=== PATIENT | female | born 1940 | race Caucasian/White ===

== ENCOUNTER 2017-01-17 05:21 | Observation (INO) | payer MEDICARE, OTHER ==
[2017-01-10 09:03] VITALS: BP 140/84
[~2017-01-17] VITALS: Ht 149.9 cm; Wt 83.1 kg
[~2017-01-17 05:21] MED LIST: ACET1TAB64 PO; AMLO10TA2 PO; ASCO500C2 PO; CHOL2000 PO; CYAN500T2 PO; FOLI0.8T2 PO; GOLD325C2 PO; IBUP-1223 PO; LOSA1TAB17 PO; MAGN400C PO; OMEP20TA62 PO; PREVISION PO; Potassium PO; TRAZ50TA18 PO; TURM500C3 PO; [UNRECOGNIZED DRUG - OTHER] PO
[2017-01-17] MEDS ORDERED: LACTATED RINGERS 1,000 ML IV SCH (06:10)
[2017-01-17] MEDS ORDERED: LASIX PO (06:15)
[2017-01-17] MEDS ORDERED: LIDOCAINE 1%, 2ML SQ PRN (06:30)
[2017-01-17] MEDS ORDERED: BUPIVACAINE/PF 0.25% ONE (06:49)
[2017-01-17] MEDS ORDERED: NEOMY/POLYMYXIN B GU IRR. 1 ML IRRIG ONE (06:49)
[2017-01-17] MEDS ORDERED: EPINEPHRINE 1 MG/ML, 1ML ONE (06:49)
[2017-01-17] MEDS ORDERED: MIDAZOLAM 1 MG/ML, 2ML ONE ×2 (07:05)
[2017-01-17] MEDS ORDERED: FENTANYL PF 100 MCG/2ML ONE ×3 (07:05→09:30)
[2017-01-17] MEDS ORDERED: KETAMINE 10 MG/ML, 20ML ONE ×2 (07:26→07:27)
[2017-01-17] MEDS ORDERED: METOCLOPRAMIDE 5 MG/ML, 2ML ONE (07:27)
[2017-01-17] MEDS ORDERED: ONDANSETRON 2MG/ML, 2ML ONE (07:27)
[2017-01-17] MEDS ORDERED: ROCURONIUM 10 MG/ML ONE (07:27)
[2017-01-17] MEDS ORDERED: CEFOTETAN 1 GM ONE (07:27)
[2017-01-17] MEDS ORDERED: KETOROLAC 30 MG/1 ML ONE (07:27)
[2017-01-17] MEDS ORDERED: DEXAMETHASONE 4 MG/ML, 1ML ONE (07:27)
[2017-01-17] MEDS ORDERED: PROPOFOL 10 MG/ML, 20ML ONE (07:27)
[2017-01-17] MEDS ORDERED: MEPERIDINE/PF 25MG/0.5ML IVPush PRN (08:00)
[2017-01-17] MEDS ORDERED: PROMETHAZINE 25 MG/ML, 1ML IV PRN (08:00)
[2017-01-17] MEDS ORDERED: FENTANYL PF 100 MCG/2ML IV PRN (08:00)
[2017-01-17] MEDS ORDERED: LABETALOL 5MG/ML, 20ML IV PRN (08:00)
[2017-01-17] MEDS ORDERED: ONDANSETRON 2MG/ML, 2ML IVPush PRN (08:00)
[2017-01-17] MEDS ORDERED: hydrALAzine 20 MG/ML, 1ML IV PRN (08:00)
[2017-01-17] MEDS ORDERED: ACETAMINOPHEN 325 MG TABLET PO PRN ×2 (08:00→19:00)
[2017-01-17] MEDS ORDERED: OXYcodone 5 MG/5 ML ORAL.SOL UDC PO PRN (08:00)
[2017-01-17] MEDS ORDERED: HYDROmorphone 1 MG/ML, 1ML IV PRN (08:00)
[2017-01-17] MEDS ORDERED: HYDROmorphone 2 MG/ML, 1ML ONE (08:09)
[2017-01-17] MEDS ORDERED: ACETAMINOPHEN 650 MG/20.3 ML UDC ONE (09:30)
[2017-01-17] MEDS ORDERED: OXYcodone 5 MG/5 ML ORAL.SOL UDC ONE (09:31)
[2017-01-17] MEDS ORDERED: LABETALOL 5MG/ML, 20ML ONE (09:36)
[2017-01-17 18:15] VITALS: BP 123/70
[2017-01-17] MEDS ORDERED: HYDROcodone/APAP 5/325 TABLET PO PRN (19:00)
[2017-01-17] MEDS ORDERED: OXYcodone/APAP 5/325MG TABLET PO PRN (19:00)
[2017-01-17] MEDS ORDERED: ACETAMINOPHEN 650 MG SUPP PR PRN (19:00)
[2017-01-17] MEDS ORDERED: ONDANSETRON 2MG/ML, 2ML IV PRN (19:00)
[2017-01-17] MEDS ORDERED: HYDROmorphone 2 MG/ML, 1ML IV PRN (19:00)
[2017-01-17 20:12] VITALS: BP 113/60
[2017-01-17] MEDS: SODIUM CHLORIDE FLUSH 3ML SYRINGE IVF SCH (20:55)
[2017-01-17] MEDS: SIMETHICONE 80 MG CHEW TAB PO SCH (20:55)
[2017-01-17] MEDS: IBUPROFEN 600 MG TABLET PO SCH (20:55)
[2017-01-17] MEDS: DOCUSATE 100 MG CAPSULE PO SCH (20:56)
[2017-01-17] MEDS ORDERED: ZOLPIDEM 5MG TABLET PO PRN (21:00)
[2017-01-17] MEDS: APAP/CODEINE 300/30MG TABLET PO PRN (23:38)
[2017-01-17 23:59] VITALS: BP 134/84
[2017-01-18 04:01] VITALS: BP 131/78
[2017-01-18] MEDS: APAP/CODEINE 300/30MG TABLET PO PRN ×2 (04:39→13:43)
[2017-01-18] MEDS: IBUPROFEN 600 MG TABLET PO SCH ×2 (06:06→11:36)
[2017-01-18] MEDS ORDERED: OMEPRAZOLE 20 MG CAPSULE.DR PO SCH (07:30)
[2017-01-18] MEDS: DOCUSATE 100 MG CAPSULE PO SCH (07:37)
[2017-01-18] MEDS: SODIUM CHLORIDE FLUSH 3ML SYRINGE IVF SCH (07:39)
[2017-01-18] MEDS: SIMETHICONE 80 MG CHEW TAB PO SCH (07:39)
[2017-01-18 07:53] VITALS: BP 121/73
[2017-01-18] MEDS ORDERED: MAGNESIUM OXIDE 400 MG TABLET PO SCH (09:00)
[2017-01-18] MEDS ORDERED: CYANOCOBALAMIN 1,000 MCG TABLET PO SCH (09:00)
[2017-01-18] MEDS ORDERED: CHOLECALCIFEROL 1,000 UNIT TABLET PO SCH (09:00)
[2017-01-18] MEDS ORDERED: LOSARTAN 50MG TABLET PO SCH (09:00)
[2017-01-18] MEDS ORDERED: FOLIC ACID 1 MG TABLET PO SCH (09:00)
[2017-01-18] MEDS ORDERED: HYDROCHLOROTHIAZIDE 25 MG TABLET PO SCH (09:00)
[2017-01-18] MEDS ORDERED: POTASSIUM CHLORIDE 8 MEQ TABLET.ER PO SCH (09:00)
[2017-01-18] MEDS ORDERED: AMLODIPINE 5 MG TABLET PO SCH (09:00)
[2017-01-18 13:53] VITALS: BP 123/72
== END 2017-01-18 17:13 | disposition home or self-care (01) ==
LOC: OUT 05:21 → ORIP 16:47 → 4NOR 18:11 → DCLOUNGE 01-18 16:45
PROVIDERS: ADMIT Obstetrics & Gynecology Female Pelvic Medicine and Reconstructive Surgery; ATTEND Obstetrics & Gynecology Female Pelvic Medicine and Reconstructive Surgery
DX: N81.3 Complete uterovaginal prolapse (principal); I10 Essential (primary) hypertension; R10.2 Pelvic and perineal pain; N39.46 Mixed incontinence; Z85.3 Personal history of malignant neoplasm of breast
CPT/HCPCS: 57268; 57288; 58552; 88307; C1771; G0378; J0171; J1100; J1170; J1885; J2250; J2405; J2704; J2765; J3010; J3490; S0074

== ENCOUNTER 2017-09-01 09:05 | Day surgery (SDC) | payer MEDICARE, OTHER ==
[~2017-09-01] VITALS: Ht 142.2 cm; Wt 76.0 kg
[~2017-09-01 09:05] MED LIST changes: +LASIX PO; -LOSA1TAB17 PO; +LOSA1TAB22 PO; +OXYC5SOL8 PO
[2017-09-01 09:33] VITALS: BP 160/82
[2017-09-01] MEDS ORDERED: LACTATED RINGERS 1,000 ML IV SCH (09:40)
[2017-09-01 09:43] VITALS: BP 160/82
[2017-09-01 10:31] LABS: ALBUMIN 3.7 g/dL (3.4-5.0); ANION GAP 5 mmol/L (5-15); CALCIUM 9.2 mg/dL (8.5-10.1); CHLORIDE 104 mmol/L (98-107)
[2017-09-01 10:34] LABS: ALANINE AMINOTRANSFERASE 26 U/L (12-78); ALKALINE PHOSPHATASE 129 U/L (45-117); BILIRUBIN,TOTAL 0.6 mg/dL (0.2-1.0); CREATININE 0.48 mg/dL (0.55-1.02); TOTAL PROTEIN 7.3 g/dL (6.4-8.2)
[2017-09-01] MEDS ORDERED: MIDAZOLAM 1 MG/ML, 2ML ONE (11:40)
[2017-09-01] MEDS ORDERED: PROPOFOL 10 MG/ML, 20ML ONE (11:41)
[2017-09-01] MEDS ORDERED: FENTANYL PF 250 MCG/5ML ONE (11:41)
[2017-09-01] MEDS ORDERED: LIDOCAINE-MPF 2% ,5ML ONE (11:42)
[2017-09-01] MEDS ORDERED: KETOROLAC 30 MG/1 ML ONE (11:42)
[2017-09-01] MEDS ORDERED: PHENYLEPHRINE 10 MG/ML ONE (11:42)
[2017-09-01] MEDS ORDERED: ROCURONIUM 10 MG/ML,10ML ONE (11:42)
[2017-09-01] MEDS ORDERED: CEFOTETAN 1 GM ONE (11:42)
[2017-09-01] MEDS ORDERED: ONDANSETRON 2MG/ML, 2ML ONE (12:16)
[2017-09-01] MEDS ORDERED: DEXAMETHASONE 4 MG/ML, 1ML ONE ×2 (12:16)
[2017-09-01] MEDS ORDERED: BUPIVACAINE/PF 0.25% INFIL ONE (12:17)
[2017-09-01] MEDS ORDERED: EPINEPHRINE 1 MG/ML, 1ML INFIL ONE (12:20)
[2017-09-01] MEDS ORDERED: NEOSTIGMINE 1 MG/ML, 10ML ONE (12:25)
[2017-09-01] MEDS ORDERED: GLYCOPYRROLATE 0.2MG/1ML, 5ML ONE (12:25)
[2017-09-01] MEDS ORDERED: ACETAMINOPHEN 325 MG TABLET PO PRN (12:30)
[2017-09-01] MEDS ORDERED: OXYcodone 5 MG/5 ML ORAL.SOL UDC PO PRN (12:30)
[2017-09-01] MEDS ORDERED: LORazepam 2 MG/ML, 1ML IVPush PRN (12:30)
[2017-09-01] MEDS ORDERED: hydrALAzine 20 MG/ML, 1ML IV PRN (12:30)
[2017-09-01] MEDS ORDERED: PROMETHAZINE 25 MG/ML, 1ML IV PRN (12:30)
[2017-09-01] MEDS ORDERED: MEPERIDINE/PF 25MG/0.5ML IVPush PRN (12:30)
[2017-09-01] MEDS ORDERED: morphine SULFATE 10 MG/ML, 1ML IV PRN (12:30)
[2017-09-01] MEDS ORDERED: FENTANYL PF 100 MCG/2ML IV PRN (12:30)
[2017-09-01] MEDS ORDERED: LABETALOL 5MG/ML, 20ML IV PRN (12:30)
[2017-09-01] MEDS ORDERED: BUPIVACAINE/PF 0.25% ONE (12:41)
[2017-09-01] MEDS ORDERED: EPINEPHRINE 1 MG/ML, 1ML ONE (12:41)
[2017-09-01] MEDS ORDERED: OXYcodone 5 MG/5 ML ORAL.SOL UDC ONE (12:56)
[2017-09-01] MEDS ORDERED: ACETAMINOPHEN 650 MG/20.3 ML UDC ONE (12:56)
== END 2017-09-01 16:30 | disposition home or self-care (01) ==
LOC: OUT 09:05
PROVIDERS: ATTEND Surgery
DX: K43.2 Incisional hernia without obstruction or gangrene (principal); I10 Essential (primary) hypertension; E66.9 Obesity, unspecified; Z88.8 Allergy status to other drugs, medicaments and biological substances; Z90.710 Acquired absence of both cervix and uterus; Z90.49 Acquired absence of other specified parts of digestive tract; Z98.890 Other specified postprocedural states; Z90.11 Acquired absence of right breast and nipple
CPT/HCPCS: 36415; 49565; 49568; 80053; C1781; J0171; J1100; J1885; J2250; J2370; J2405; J2704; J2710; J3010; J3490; J7120; S0074

== ENCOUNTER 2018-02-08 10:55 | Observation (INO) | payer MEDICARE, OTHER ==
[~2018-02-08] VITALS: Ht 142.2 cm; Wt 81.3 kg
[~2018-02-08 10:55] MED LIST changes: +ALLERGY PO; -AMLO10TA2 PO; +AMLO10TA6 PO; +BUPIVACAINE/PF-EPI 0.5% 1:200K ONE; +IRON PO; +LOSA25TA6 PO; +NAPR220C2 PO; +TRAZ-136 PO; -TRAZ50TA18 PO
[2018-02-08] MEDS ORDERED: LACTATED RINGERS 1,000 ML IV SCH (11:10)
[2018-02-08] MEDS ORDERED: GABAPENTIN 300 MG CAPSULE PO ONE (11:30)
[2018-02-08] MEDS ORDERED: ACETAMINOPHEN 500 MG TABLET PO ONE (11:30)
[2018-02-08] MEDS ORDERED: OXYcodone IR 5MG TABLET PO ONE (12:00)
[2018-02-08] MEDS ORDERED: MEPERIDINE/PF 25MG/0.5ML IVPush PRN (13:30)
[2018-02-08] MEDS ORDERED: HYDROmorphone 1 MG/ML, 1ML IV PRN (13:30)
[2018-02-08] MEDS ORDERED: PROMETHAZINE 25 MG/ML, 1ML IV PRN (13:30)
[2018-02-08] MEDS ORDERED: LABETALOL 5MG/ML, 20ML IV PRN (13:30)
[2018-02-08] MEDS ORDERED: DIPHENHYDRAMINE 50 MG/ML, 1ML IVPush PRN (13:30)
[2018-02-08] MEDS ORDERED: PROCHLORPERAZINE 5 MG/ML, 2ML IV PRN (13:30)
[2018-02-08] MEDS ORDERED: OXYcodone 5 MG/5 ML ORAL.SOL UDC PO PRN (13:30)
[2018-02-08] MEDS ORDERED: hydrALAzine 20 MG/ML, 1ML IV PRN (13:30)
[2018-02-08] MEDS ORDERED: FENTANYL PF 250 MCG/5ML ONE (13:32)
[2018-02-08] MEDS ORDERED: EPHEDRINE 50 MG/ML, 1ML ONE (14:20)
[2018-02-08] MEDS ORDERED: NEOSTIGMINE 1 MG/ML, 10ML ONE (15:09)
[2018-02-08] MEDS ORDERED: ONDANSETRON 2MG/ML, 2ML ONE (15:09)
[2018-02-08] MEDS ORDERED: DEXAMETHASONE 4 MG/ML, 1ML ONE (15:09)
[2018-02-08] MEDS ORDERED: ROCURONIUM 10MG/ML,5ML ONE (15:09)
[2018-02-08] MEDS ORDERED: SUCCINYLCHOLINE 20 MG/ML, 10ML ONE (15:09)
[2018-02-08] MEDS ORDERED: PROPOFOL 10 MG/ML, 20ML ONE (15:09)
[2018-02-08] MEDS ORDERED: GLYCOPYRROLATE 0.2MG/1ML, 5ML ONE (15:09)
[2018-02-08] MEDS ORDERED: CEFAZOLIN 1,000 MG ONE (15:09)
[2018-02-08] MEDS ORDERED: FENTANYL PF 100 MCG/2ML ONE (16:05)
[2018-02-08] MEDS ORDERED: OXYcodone 5 MG/5 ML ORAL.SOL UDC ONE (16:05)
[2018-02-08] MEDS: FENTANYL PF 100 MCG/2ML IV PRN ×2 (16:07→16:27)
[2018-02-08] MEDS ORDERED: MORPHINE SULFATE 4 MG/ML, 1ML IV PRN (17:30)
[2018-02-08] MEDS ORDERED: ONDANSETRON ODT 4 MG PO PRN (17:30)
[2018-02-08] MEDS ORDERED: ONDANSETRON 2MG/ML, 2ML IV PRN (17:30)
[2018-02-08 18:25] LABS: MEAN CORPUSCULAR HEMOGLOBIN 27.1 pg (27.0-34.8); MEAN CORPUSCULAR HGB CONC 33.3 g/dL (32.4-35.8); MEAN CORPUSCULAR VOLUME 81.3 fL (80-100); MEAN PLATELET VOLUME 8.2 fL (7.4-10.4); PLATELET COUNT 289 x10^3/uL (130-400); RED BLOOD COUNT 5.21 x10^6/uL (3.82-5.3); RED CELL DISTRIBUTION WIDTH 15.6 % (9.6-15.2)
[2018-02-08 18:48] LABS: BASOPHILS # (AUTO) 0.01 x10^3/uL (0-0.1); BASOPHILS % (AUTO) 0 % (0-1); EOSINOPHILS # (AUTO) 0.07 x10^3/uL (0-0.4); EOSINOPHILS % (AUTO) 1 % (1-7); LYMPHOCYTES # (AUTO) 0.52 x10^3/uL (1-3.4); LYMPHOCYTES % (AUTO) 4 % (22-44); MD SCAN; MONOCYTES # (AUTO) 0.03 x10^3/uL (0.2-0.8); MONOCYTES % (AUTO) 0 % (2-9); NEUTROPHILS # (AUTO) 11.34 x10^3/uL (1.8-6.8); NEUTROPHILS % (AUTO) 95 % (42-75)
[2018-02-08 19:00] VITALS: BP 105/59
[2018-02-08] MEDS: OXYcodone IR 5MG TABLET PO PRN (20:15)
[2018-02-08 23:07] VITALS: BP 115/57
[2018-02-09] MEDS: OXYcodone IR 5MG TABLET PO PRN ×4 (00:10→21:09)
[2018-02-09] MEDS: LACTATED RINGERS 1,000 ML IV SCH ×2 (01:55→21:00)
[2018-02-09 03:35] VITALS: BP 111/68
[2018-02-09 08:25] VITALS: BP 149/79
[2018-02-09] MEDS: AMLODIPINE 10 MG TAB PO SCH (09:05)
[2018-02-09] MEDS: MULTIVITAMINS/MINERALS TABLET PO SCH (09:05)
[2018-02-09] MEDS: MAGNESIUM OXIDE 400 MG TABLET PO SCH (09:05)
[2018-02-09] MEDS: LOSARTAN 25MG TABLET PO SCH (09:06)
[2018-02-09] MEDS ORDERED: OMEPRAZOLE 20 MG CAPSULE.DR ONE (12:06)
[2018-02-09] MEDS: OMEPRAZOLE 20 MG CAPSULE.DR PO SCH ×2 (12:14→21:09)
[2018-02-09 14:45] VITALS: BP 124/75
[2018-02-09 18:37] VITALS: BP 121/67
[2018-02-10] MEDS: OXYcodone IR 5MG TABLET PO PRN ×3 (01:15→13:12)
[2018-02-10 01:28] VITALS: BP 138/76
[2018-02-10 07:24] VITALS: BP 139/80
[2018-02-10] MEDS: AMLODIPINE 10 MG TAB PO SCH (10:04)
[2018-02-10] MEDS: LOSARTAN 25MG TABLET PO SCH (10:04)
[2018-02-10] MEDS: MAGNESIUM OXIDE 400 MG TABLET PO SCH (10:04)
[2018-02-10] MEDS: MULTIVITAMINS/MINERALS TABLET PO SCH (10:04)
[2018-02-10] MEDS: OMEPRAZOLE 20 MG CAPSULE.DR PO SCH (10:04)
[2018-02-10 15:35] VITALS: BP 130/78
[2018-02-10] MEDS ORDERED: OXYC-302 PO (15:38)
== END 2018-02-10 16:00 | disposition home or self-care (01) ==
LOC: OUT 10:55 → ORIP 15:49 → 4NOR 16:59 → DCLOUNGE 02-10 15:46
PROVIDERS: ADMIT Surgery; ATTEND Surgery
DX: K43.2 Incisional hernia without obstruction or gangrene (principal); K66.0 Peritoneal adhesions (postprocedural) (postinfection)
CPT/HCPCS: 36415; 49656; 85025; C1781; G0378; J0330; J0690; J1100; J2405; J2704; J2710; J3010; J3490; J7120

== ENCOUNTER → 2018-07-04 | Outpatient (CLI) | payer MEDICARE, OTHER ==
[~2018-07-04] MED LIST changes: -AMLO10TA6 PO; +AMLO10TA8 PO; -BUPIVACAINE/PF-EPI 0.5% 1:200K ONE; +LORA1TAB PO; +LOSA25TA25 PO; -LOSA25TA6 PO; +OXYC-302 PO; +OXYC5CAP2 PO; -TRAZ-136 PO; +TRAZ50TA66 PO; +hydrocortisone TD
[2018-07-04 15:20] LABS: ALANINE AMINOTRANSFERASE 28 U/L (12-78); ANION GAP 5 mmol/L (5-15); CALCIUM 10.4 mg/dL (8.5-10.1); CHLORIDE 100 mmol/L (98-107); CREATININE 0.52 mg/dL (0.55-1.02)
[2018-07-04 15:22] LABS: ALKALINE PHOSPHATASE 135 U/L (45-117); BILIRUBIN,TOTAL 0.6 mg/dL (0.2-1.0); TOTAL PROTEIN 7.9 g/dL (6.4-8.2)
== END | disposition home or self-care (01) ==
LOC: STAR 13:56
PROVIDERS: ATTEND Surgery
DX: I44.0 Atrioventricular block, first degree (principal); I45.10 Unspecified right bundle-branch block; I77.89 Other specified disorders of arteries and arterioles; Z79.899 Other long term (current) drug therapy; Z88.1 Allergy status to other antibiotic agents; Z88.8 Allergy status to other drugs, medicaments and biological substances
CPT/HCPCS: 36415; 80053; 93005

== ENCOUNTER 2019-03-15 06:18 | Day surgery (SDC) | payer MEDICARE, OTHER ==
[~2019-03-15] VITALS: Ht 142.2 cm; Wt 77.4 kg
[~2019-03-15 06:18] MED LIST changes: +ACET650S21 PO; +ALEN70TA3 PO; +CALC-451 PO; +CALC-680 PO; +CALC200T3 PO; +CHOL20002 PO; +CYAN-27 PO; -CYAN500T2 PO; +CYAN500T54 PO; +IBUP200C8 PO; +IRON1TAB60 PO; +LORA-974 PO; +MAGN400T36 PO; +VIT1CAPS42 PO; +[UNRECOGNIZED DRUG - OTHER] PO; +tumeric PO
[2019-03-15 06:51] VITALS: BP 143/75
[2019-03-15] MEDS ORDERED: LACTATED RINGERS 1,000 ML IV SCH (06:55)
[2019-03-15] MEDS ORDERED: EPINEPHRINE 1 MG/ML, 1ML ONE (08:17)
[2019-03-15] MEDS ORDERED: BUPIVACAINE/PF 0.5% ONE (08:17)
[2019-03-15] MEDS ORDERED: MIDAZOLAM 1 MG/ML, 2ML ONE (08:33)
[2019-03-15] MEDS ORDERED: FENTANYL PF 250 MCG/5ML ONE (08:34)
[2019-03-15] MEDS ORDERED: ALBUTEROL SULFATE 2.5 MG/3 ML NPPB PRN (10:00)
[2019-03-15] MEDS ORDERED: ONDANSETRON 2MG/ML, 2ML IVPush PRN (10:00)
[2019-03-15] MEDS ORDERED: KETOROLAC 30 MG/1 ML IV PRN (10:00)
[2019-03-15] MEDS ORDERED: PROMETHAZINE 25 MG/ML, 1ML IV PRN (10:00)
[2019-03-15] MEDS ORDERED: MEPERIDINE/PF 25MG/0.5ML IVPush PRN (10:00)
[2019-03-15] MEDS ORDERED: HYDROmorphone 1 MG/ML, 1ML INJ IV PRN ×2 (10:00→10:30)
[2019-03-15] MEDS ORDERED: LABETALOL 5MG/ML, 20ML IV PRN (10:00)
[2019-03-15] MEDS ORDERED: hydrALAzine 20 MG/ML, 1ML IV PRN (10:00)
[2019-03-15] MEDS ORDERED: OXYcodone 5 MG/5 ML ORAL.SOL UDC PO PRN (10:00)
[2019-03-15] MEDS ORDERED: METOCLOPRAMIDE 5 MG/ML, 2ML IV PRN (10:00)
[2019-03-15] MEDS ORDERED: OXYcodone 5 MG/5 ML ORAL.SOL UDC ONE ×2 (10:33→10:58)
[2019-03-15] MEDS ORDERED: FENTANYL PF 100 MCG/2ML ONE (10:33)
[2019-03-15] MEDS: FENTANYL PF 100 MCG/2ML IV PRN ×4 (10:35→11:02)
[2019-03-15] MEDS: OXYcodone 5 MG/5 ML ORAL.SOL UDC PO PRN ×3 (10:35→11:54)
[2019-03-15] MEDS ORDERED: CEFAZOLIN 1,000 MG ONE (15:31)
[2019-03-15] MEDS ORDERED: PROPOFOL 10 MG/ML, 20ML ONE (15:31)
[2019-03-15] MEDS ORDERED: SUCCINYLCHOLINE 20 MG/ML, 10ML ONE (15:31)
== END 2019-03-15 13:10 | disposition home or self-care (01) ==
LOC: OUT 06:18
PROVIDERS: ATTEND Surgery
DX: K43.2 Incisional hernia without obstruction or gangrene (principal); I10 Essential (primary) hypertension; E66.9 Obesity, unspecified; Z68.35 Body mass index [BMI] 35.0-35.9, adult; Z79.891 Long term (current) use of opiate analgesic; Z79.899 Other long term (current) drug therapy; Z88.8 Allergy status to other drugs, medicaments and biological substances; Z90.49 Acquired absence of other specified parts of digestive tract; Z90.710 Acquired absence of both cervix and uterus; Z90.11 Acquired absence of right breast and nipple; Z98.890 Other specified postprocedural states; Z80.3 Family history of malignant neoplasm of breast; Z80.8 Family history of malignant neoplasm of other organs or systems
CPT/HCPCS: 49560; 49568; C1781; J0171; J0330; J0690; J2250; J2704; J3010; J7120

== ENCOUNTER → 2020-11-18 | Outpatient (CLI) | payer MEDICARE, OTHER ==
[~2020-11-18] MED LIST changes: +AMLO-211 PO; -AMLO10TA8 PO; -CYAN500T54 PO; +CYAN500T7 PO; -FOLI0.8T2 PO; +FOLI0.8T5 PO; -LORA-974 PO; -OXYC-302 PO; +OXYC1TAB14 PO; +[UNRECOGNIZED DRUG - CODE] PO
== END | disposition home or self-care (01) ==
LOC: ROC 07:25
PROVIDERS: ATTEND Radiology Radiation Oncology
DX: D42.9 Neoplasm of uncertain behavior of meninges, unspecified (principal)
CPT/HCPCS: G0463

== ENCOUNTER → 2020-11-26 | Outpatient (CLI) | payer MEDICARE, OTHER ==
[~2020-11-26] MED LIST changes: +GADOTERATE 10 MMOL/20ML SYR ONE
== END | disposition home or self-care (01) ==
LOC: CFH 07:08
PROVIDERS: ATTEND Radiology Radiation Oncology
DX: D42.9 Neoplasm of uncertain behavior of meninges, unspecified (principal); I67.82 Cerebral ischemia; G93.89 Other specified disorders of brain
CPT/HCPCS: 70553; A9575

== ENCOUNTER → 2020-12-10 | Outpatient (CLI) | payer MEDICARE, OTHER ==
[~2020-12-10] MED LIST changes: -GADOTERATE 10 MMOL/20ML SYR ONE
== END | disposition home or self-care (01) ==
LOC: ROC 11:52
PROVIDERS: ATTEND Radiology Radiation Oncology
DX: D42.9 Neoplasm of uncertain behavior of meninges, unspecified (principal)
CPT/HCPCS: G0463